=== PATIENT | male | born 1965 | race Caucasian/White ===

== ENCOUNTER 2019-03-19 01:24 | Outpatient (CLI) | payer OTHER, SELFPAY | END 2019-03-19 01:44 | PROVIDERS: PCP Orthopaedic Surgery; Visit Provider Orthopaedic Surgery | DX: I47.1 Supraventricular tachycardia (principal) | CPT/HCPCS: 93005; 93010 ==

== ENCOUNTER 2019-04-04 03:33 | Outpatient (CLI) | payer OTHER, SELFPAY ==
--- NOTE | 2019-04-04 14:15 | MERGE_ITS ---
*[facility]* *[facility]* [address] [place] [address] Date of study: 04/04/2019 Transthoracic Echocardiography M-mode, complete 2D, complete spectral Doppler, and color Doppler *STUDY CONCLUSIONS* Summary: 1. Left ventricle: The cavity size was normal. There was mild concentric hypertrophy. Systolic function was normal. The estimated ejection fraction was 60-65%. Wall motion was normal; there were no regional wall motion abnormalities. 2. Aortic valve: Trileaflet; normal thickness leaflets. 3. Aorta: The aorta was mildly dilated. Aortic root dimension: 4.0cm (ED). Ascending aortic diameter: 3.7cm (S). Aortic arch diameter: 3.4cm. 4. Mitral valve: Mild, late systolicprolapse, involving the posterior leaflet. There was mild regurgitation. 5. Right ventricle: The cavity size was normal. Wall thickness was normal. Systolic function was normal. *PATIENT PRESENTATION* Height: 190.5cm (75in ) S/D Pressure: 123 / 71 Weight: 81.6kg (179.6lb ) BSA: 2.07m^2 Test start time: 02:20 PM. Test stop time: 03:30 PM. PERFORMING Unknown PERFORMING [facility] ETL ANALYST RT Devon BenoitR)(CT), CS CONSULTING Josh Gauthier ORDERING Josh Gauthier REFERRING Josh Gauthier *PROCEDURE DATA* Procedure information: The patient was identified by two identifiers. This study was interpreted by [facility]. Pertinent images and digital data are archived for permanent storage and are available for subsequent review. No prior study was available for comparison. Study status: Routine. Transthoracic echocardiography. M-mode, complete 2D, complete spectral Doppler, and color Doppler. A Transthoracic Echocardiogram was performed. Scanning was performed from the parasternal, apical, subcostal, and suprasternal notch acoustic windows. Images were obtained using an [id number] cardiac ultrasound machine. Image quality was good. Study completion: The patient tolerated the procedure well. There were no complications. History: PMH: Supraventricular tachycardia i47.1. *CARDIAC ANATOMY* Left ventricle: The cavity size was normal. There was mild concentric hypertrophy. Systolic function was normal. The estimated ejection fraction was 60-65%. Wall motion was normal; there were no regional wall motion abnormalities. Diastolic parameters were not diagnostic. Aortic valve: Trileaflet; normal thickness leaflets. Mobility was not restricted. Doppler: Transvalvular velocity was within the normal range. There was no stenosis. There was no significant regurgitation. VTI ratio of LVOT to aortic valve: 0.82. Valve area (VTI): 3.3cm^2. Indexed valve area (VTI): 1.6cm^2/m^2. Peak velocity ratio of LVOT to aortic valve: 0.83. Valve area (Vmax): 3.3cm^2. Indexed valve area (Vmax): 1.6cm^2/m^2. Mean velocity ratio of LVOT to aortic valve: 0.78. Valve area (Vmean): 3.1cm^2. Indexed valve area (Vmean): 1.5cm^2/m^2. Mean gradient (S): 9.1mm Hg. Peak gradient (S): 14.7mm Hg. Aorta: The aorta was mildly dilated. Aortic root: The aortic root was mildly dilated. Ascending aorta: The ascending aorta was mildly dilated. Mitral valve: Mobility was not restricted. Mild, late systolicprolapse, involving the posterior leaflet. Doppler: Transvalvular velocity was within the normal range. There was no evidence for stenosis. There was mild regurgitation. Valve area by pressure half-time: 4.5cm^2. Indexed valve area by pressure half-time: 2.2cm^2/m^2. Peak gradient (D): 3.5mm Hg. Left atrium: The atrium was normal in size. Right ventricle: The cavity size was normal. Wall thickness was normal. Systolic function was normal. Pulmonic valve: Structurally normal valve. Doppler: Transvalvular velocity was within the normal range. There was no evidence for stenosis. There was trivial regurgitation. Peak gradient (S): 3mm Hg. Tricuspid valve: Structurally normal valve. Doppler: Transvalvular velocity was within the normal range. There was no evidence for stenosis. There was mild regurgitation. Pulmonary artery: Pulmonary systolic pressure was within the normal range, in the range of 25mm Hg to 30mm Hg. Right atrium: The atrium was normal in size. Pericardium: There was no pericardial effusion. Systemic veins: Inferior vena cava: Well visualized. The vessel was patent and normal in size. The respirophasic diameter changes were blunted (less than 50%). Baseline ECG: Bradycardia. Measurements Left ventricle Value Reference LV ID, ED, PLAX 5.0 cm 3.5 - 6.0 LV ID, ES, PLAX 3.2 cm 2.1 - 4.0 LV PW thickness, ED, PLAX 1.2 cm LV end-diastolic volume, 1-p A2C 113 ml LV ejection fraction, 1-p A2C 62 % LV end-diastolic volume, 1-p A4C 94 ml LV ejection fraction, 1-p A4C 53 % LV e', lateral 0.104 m/sec LV E/e', lateral 9 LV e', medial 0.072 m/sec LV E/e', medial 13 LV e', average 0.088 m/sec LV E/e', average 11 Ventricular septum Value Reference IVS thickness, ED, PLAX 1.1 cm LVOT Value Reference LVOT ID, A-P 2.3 cm LVOT area 4 cm^2 LVOT peak velocity, S 1.58 m/sec LVOT mean velocity, S 1.14 m/sec LVOT VTI, S 36.3 cm LVOT peak gradient, S 10 mm Hg LVOT mean gradient, S 5.7 mm Hg Stroke volume (SV), LVOT DP 145 ml Stroke index (SV/bsa), LVOT DP 70 ml/m^2 Aortic valve Value Reference Aortic valve peak velocity, S 1.9 m/sec Aortic valve mean velocity, S 1.5 m/sec Aortic valve VTI, S 44.0 cm Aortic mean gradient, S 9.1 mm Hg Aortic peak gradient, S 14.7 mm Hg VTI ratio, LVOT/AV 0.82 Aortic valve area, VTI 3.3 cm^2 Velocity ratio, peak, LVOT/AV 0.83 Aortic valve area, peak velocity 3.3 cm^2 Velocity ratio, mean, LVOT/AV 0.78 Aortic valve area, mean velocity 3.1 cm^2 Aortic valve area/bsa, mean velocity 1.5 cm^2/m^2 Aorta Value Reference Aortic root ID, ED 4.0 cm Ascending aorta ID, A-P, S 3.7 cm Aortic arch ID 3.4 cm Left atrium Value Reference LA ID, A-P, ES 3.9 cm LA ID/bsa, A-P 1.9 cm/m^2 <=2.2 LA volume/bsa, ES, 1-p A4C 40 ml/m^2 LA volume, ES, 2-p 69 ml LA volume/bsa, ES, 2-p 33 ml/m^2 LA/aortic root ratio 0.99 Mitral valve Value Reference Mitral E-wave peak velocity 0.93 m/sec Mitral A-wave peak velocity 0.64 m/sec Mitral deceleration time 169 ms 150 - 230 Mitral pressure half-time 49 ms Mitral peak gradient, D 3.5 mm Hg Mitral E/A ratio, peak 1.45 Mitral valve area, PHT, DP 4.5 cm^2 Pulmonary veins Value Reference Pulmonary vein peak velocity, S 0.56 m/sec Pulmonary vein peak velocity, D 0.73 m/sec Pulmonary vein velocity ratio, peak, 0.78 S/D Pulmonary vein A-wave reversal peak 0.36 m/sec velocity Tricuspid valve Value Reference Tricuspid regurg peak velocity 2.5 m/sec Tricuspid peak RV-RA gradient 24.5 mm Hg Right atrium Value Reference RA area, ES, A4C (H) 20.8 cm^2 8.3 - 19.5 Pulmonic valve Value Reference Pulmonic peak gradient, S 3 mm Hg Legend: (L) and (H) elías values outside specified reference range. I have personally reviewed the images and have reviewed and edited the reported findings. Electronically signed by Remi Corrigan 04/05/2019 07:23
== END 2019-04-04 03:53 ==
PROVIDERS: PCP Orthopaedic Surgery; Visit Provider Orthopaedic Surgery
DX: R00.1 Bradycardia, unspecified (principal); I77.819 Aortic ectasia, unspecified site; I34.0 Nonrheumatic mitral (valve) insufficiency; I51.7 Cardiomegaly
CPT/HCPCS: 93306